=== PATIENT | female | born 1965 | race Caucasian/White ===

== ENCOUNTER 2021-10-28 11:21 | Emergency (ER) | payer BC ==
[2021-10-28 11:33] VITALS: RESP 20
--- NOTE | 2021-10-28 12:31 | XR ---
EXAMINATION TYPE: XR chest 2V DATE OF EXAM: 10/28/2021 COMPARISON: Prior chest CT August 12, 2015 HISTORY: Chest pain and body aches. TECHNIQUE: Frontal and lateral views of the chest are obtained. FINDINGS: Background Mild emphysematous change with persistent near 2.0 cm right midlung nodule. Ther e is no suspicious focal air space opacity, pleural effusion, or pneumothorax seen. The cardiac silh ouette size remains within normal limits. Multilevel spurring in the spine with scoliotic curvature i s redemonstrated. IMPRESSION: Chronic changes without acute pulmonary process.
--- NOTE | 2021-10-28 12:31 | ED ---
URI HPI - General Chief Complaint: Upper Respiratory Infection Stated Complaint: Covid test Time Seen by Provider: 10/28/21 11:22 Source: patient, RN notes reviewed Mode of arrival: ambulatory Limitations: no limitations - History of Present Illness Initial Comments: 56-year-old female presents emergency Department chief complaint of cough congestion 2 weeks. Patient states that she's had PCP today sent over for COVID-19 testing, x-ray. Patient does have a history of COPD, continues to smoke. Patient states she does not use her rescue inhaler. Patient denies any current chills subjective fever at home. No chest pain no abdominal pain no leg swelling denies any history DVT or PE. She states her cough is mildly productive. - Related Data Previous Rx's Medication Instructions Recorded Azithromycin [Zithromax Z-pack (6 0 mg PO DIRECTED #1 packet 10/28/21 tabs)] predniSONE 50 mg PO DAILY #5 tab 10/28/21 Allergies Allergy/AdvReac Type Severity Reaction Status Date / Time No Known Allergies Allergy Verified 10/28/21 11:33 Review of Systems ROS Statement: Those systems with pertinent positive or pertinent negative responses have been documented in the HPI. ROS Other: All systems not noted in ROS Statement are negative. Past Medical History Past Medical History: Diabetes Mellitus History of Any Multi-Drug Resistant Organisms: None Reported Past Surgical History: No Surgical Hx Reported Past Psychological History: No Psychological Hx Reported Smoking Status: Current every day smoker Past Alcohol Use History: None Reported Past Drug Use History: Marijuana General Exam Limitations: no limitations General appearance: alert, in no apparent distress Head exam: Present: atraumatic, normocephalic, normal inspection Eye exam: Present: normal appearance, PERRL, EOMI. Absent: scleral icterus, conjunctival injection, periorbital swelling ENT exam: Present: normal exam, normal oropharynx, mucous membranes moist Neck exam: Present: normal inspection, full ROM. Absent: tenderness, meningismus, lymphadenopathy Respiratory exam: Present: wheezes. Absent: normal lung sounds bilaterally, respiratory distress, rales, rhonchi, stridor Cardiovascular Exam: Present: regular rate, normal rhythm, normal heart sounds. Absent: systolic murmur, diastolic murmur, rubs, gallop, clicks Neurological exam: Present: alert, oriented X3 Skin exam: Present: warm, dry, intact, normal color. Absent: rash Course Vital Signs 10/28/21 11:31 Temperature 98.7 F Pulse Rate 96 Respiratory 20 Rate Blood Pressure 109/67 O2 Sat by Pulse 99 Oximetry Medical Decision Making - Medical Decision Making covid 19 is negative, x-rays unremarkable. Patient to for acute COPD exacerbation patient we discharged on steroids, antibiotics return parameters were discussed. - Lab Data Lab Results 10/28/21 Range/Units 12:10 Coronavirus (PCR) Not Detected (Not Detectd) Disposition Clinical Impression: COPD exacerbation Disposition: HOME SELF-CARE Condition: Stable Instructions (If sedation given, give patient instructions): COPD (Chronic Obstructive Pulmonary Disease) (ED) Additional Instructions: Please return to the Emergency Department if symptoms worsen or any other concerns. Prescriptions: predniSONE 50 mg PO DAILY #5 tab Azithromycin [Zithromax Z-pack (6 tabs)] 0 mg PO DIRECTED #1 packet Is patient prescribed a controlled substance at d/c from ED?: No Referrals: Kevin Scales DO [Primary Care Provider] - 1-2 days Time of Disposition: 12:59
[2021-10-28 13:12] VITALS: BP 110/64; PULSE 94; TEMP 99
== END 2021-10-28 13:12 | disposition home or self-care (01) ==
LOC: EC 11:21
DX: J44.1 Chronic obstructive pulmonary disease with (acute) exacerbation (principal); E11.9 Type 2 diabetes mellitus without complications; F17.200 Nicotine dependence, unspecified, uncomplicated; F12.90 Cannabis use, unspecified, uncomplicated; Z20.822 Contact with and (suspected) exposure to COVID-19
CPT/HCPCS: 71046; 87635; 99283

== ENCOUNTER → 2023-09-28 | Outpatient (CLI) | payer BC ==
--- NOTE | 2023-09-28 09:43 | XR ---
EXAMINATION TYPE: XR chest 2V DATE OF EXAM: 09/28/2023 COMPARISON: 10/28/2021 TECHNIQUE: PA and lateral views submitted. HISTORY: Hemoptysis FINDINGS: Right-sided consolidation and pleural effusion with hilar prominence. Underlying mass or adenopathy i n the differential. Right-sided chest tube. Left lung clear. Heart size normal. Degenerative change o f the spine. IMPRESSION: 1. Right-sided consolidation and pleural effusion. Cannot exclude underlying adenopathy or hilar mass .
== END | disposition home or self-care (01) ==
LOC: RADXRMAIN 09:17
PROVIDERS: ATTEND Family Medicine
DX: J90 Pleural effusion, not elsewhere classified (principal); R04.2 Hemoptysis
CPT/HCPCS: 71046

== ENCOUNTER 2023-10-26 09:37 | Inpatient (IN) | payer BC, OTHER ==
--- NOTE | 2023-10-26 10:00 | ED ---
SOB HPI - General Chief Complaint: Shortness of Breath Stated Complaint: Coughing blood Time Seen by Provider: 10/26/23 09:48 Source: patient, RN notes reviewed Mode of arrival: ambulatory Limitations: no limitations - History of Present Illness Initial Comments: This is a 58-year-old female who presents to the emergency department for hemoptysis. Patient has lung cancer and is being treated with immunotherapy every [address] Aceves. States that she had a biopsy last month and has had problems with hemoptysis since. She was told that the hemoptysis was not much of a concern at that time. She is worried because the hemoptysis got much worse last night and she is coughing up dark red blood. Not taking any blood thinners. She does have ongoing shortness of breath, but does not believe that it is much worse than normal. Denies any chest pain, fevers, or chills. MD Complaint: shortness of breath, cough - Related Data Home Medications Medication Instructions Recorded Confirmed Albuterol Inhaler [Ventolin Hfa 2 puff INHALATION RT-Q4H PRN 10/26/23 10/26/23 Inhaler] Atezolizumab [Tecentriq] 1,200 mg IV Q21D 10/26/23 10/26/23 Fluticasone Propion/Salmeterol 1 puff INHALATION RT-BID 10/26/23 10/26/23 [Advair 250-50 Diskus] Losartan Potassium 100 mg PO DAILY 10/26/23 10/26/23 Montelukast [Singulair] 10 mg PO HS 10/26/23 10/26/23 Pravastatin Sodium [Pravachol] 40 mg PO HS 10/26/23 10/26/23 metFORMIN HCL 1,000 mg PO BID 10/26/23 10/26/23 methocarbamoL [Robaxin] 500 mg PO TID PRN 10/26/23 10/26/23 oxyCODONE HCL [OxyIR] 5 mg PO Q4H PRN 10/26/23 10/26/23 Allergies Allergy/AdvReac Type Severity Reaction Status Date / Time No Known Allergies Allergy Verified 10/26/23 13:40 Review of Systems ROS Statement: Those systems with pertinent positive or pertinent negative responses have been documented in the HPI. ROS Other: All systems not noted in ROS Statement are negative. Past Medical History Past Medical History: Cancer, Diabetes Mellitus, Hypertension Additional Past Medical History / Comment(s): pt has hx of lung cancer History of Any Multi-Drug Resistant Organisms: None Reported Past Surgical History: No Surgical Hx Reported Past Psychological History: No Psychological Hx Reported Smoking Status: Current every day smoker Past Alcohol Use History: None Reported Past Drug Use History: Marijuana General Exam Limitations: no limitations General appearance: alert, in no apparent distress Head exam: Present: atraumatic, normocephalic, normal inspection Respiratory exam: Present: normal lung sounds bilaterally. Absent: respiratory distress, wheezes, rales, rhonchi, stridor Cardiovascular Exam: Present: regular rate, normal rhythm, normal heart sounds. Absent: systolic murmur, diastolic murmur, rubs, gallop, clicks Neurological exam: Present: alert, oriented X3, CN II-XII intact Psychiatric exam: Present: normal affect, normal mood Skin exam: Present: warm, dry, intact, normal color. Absent: rash Course Vital Signs 10/26/23 10/26/23 10/26/23 09:44 09:55 11:27 Temperature 97.3 F L Pulse Rate 100 91 92 Respiratory 18 18 16 Rate Blood Pressure 152/82 120/79 129/63 O2 Sat by Pulse 96 96 96 Oximetry Medical Decision Making - Medical Decision Making This is a 58 year old female who presents to the emergency department for hemoptysis and shortness of breath. Was pt. sent in by a medical professional or institution? @ -No Did you speak to anyone other than the patient for history? @ -No Did you review nursing and triage notes? @ -Yes, and I agree, it is accurate with regards to the patient's symptoms. Were old charts reviewed? @ -No Differential Diagnosis? @ -Differential Dyspnea: Coronary syndrome, arrhythmia, tamponade, asthma, COPD, pulmonary embolism, pneumonia, pneumothorax, pulmonary effusion, anaphylaxis, diabetic ketoacidosis, flailed chest, pulmonary contusion, diaphragmatic rupture, anemia, neuromuscul ar, this is not meant to be an all-inclusive list. EKG interpreted by me (3pts min.)? @ -EKG interpreted by me demonstrating the following: Sinus rhythm. Ventricular rate 94 bpm, FL interval 127 ms, QRS duration with 113 ms, QTc 398 ms. X-rays interpreted by me (1pt min.)? @ -Not obtained CT interpreted by me (1pt min.)? @ -CTA of the chest obtained. My interpretation identifies no evidence of a pulmonary embolus. U/S interpreted by me (1pt. min.)? @ -Not obtained What testing was considered but not performed? (CT, X-rays, U/S, labs)? Why? @ -None What meds were considered but not given? Why? @ -None Did you discuss the management of the patient with other professionals? @ -Yes, Dr. Cuello, who accepts the patient for admission. Did you reconcile home meds? @ -Yes Was smoking cessation discussed for >3mins.? @ -I discussed smoking cessation for greater than 3 minutes. The risk of smoking were discussed with the patient including but not limited to risks of cancer, stroke, coronary artery disease and COPD. Also discussed with patient were multiple methods of quitting smoking. Lastly we discussed the financial cost of smoking. Was critical care preformed (if so, how long)? @ -No Were there social determinants of health that impacted care today? How? (Homelessness, low income, unemployed, alcoholism, drug addiction, transportation, low edu. Level, literacy, decrease access to med. care, [place] [facility], rehab)? @ -No Was there de-escalation of care discussed even if they declined? (Discuss DNR or withdrawal of care, Hospice)? @ -No What co-morbidities impacted this encounter? (DM, HTN, Smoking, COPD, CAD, Cancer, CVA, Hep., AIDS, mental health diagnosis, sleep apnea, morbid obesity)? @ -Lung cancer, DM, HTN, smoking Was patient admitted / discharged? @ -Admitted. Lab work demonstrates a hemoglobin of 8.7. D-dimer elevated at 3.76. Patient had a print out with her of lab work obtained earlier this month demonstrating a hemoglobin of greater than 10. CTA of the chest demonstrates multiple right-sided lung masses suspicious for primary and/or metastatic disease. There is also a consolidation or metastasis at the right lung base. Given the patient's worsening symptoms with anemia, patient admitted to medicine for further management and serial hemoglobins. Due to the possibility of a consolidation at the right lung base, she was started on the pneumonia protocol with ceftriaxone and azithromycin. Blood cultures obtained as well. Consult placed for pulmonology and hematology/oncology. Undiagnosed new problem with uncertain prognosis? @ -None Drug Therapy requiring intensive monitoring for toxicity (Heparin, Nitro, Insulin, Cardizem)? @ -None Were any procedures done? @ -None Diagnosis/symptom? @ -Hemoptysis Acute, or Chronic, or Acute on Chronic? @ -Acute Uncomplicated (without systemic symptoms) or Complicated (systemic symptoms)? @ -Uncomplicated Side effects of treatment? @ -None Exacerbation, Progression, or Severe Exacerbation] @ -Not applicable Poses a threat to life or bodily function? @ -Yes, this can lead to further blood loss This case was discussed in detail with the attending ED physician, Dr. Tanner. Presentation, findings, and treatment plan discussed in detail as well. - Lab Data Result diagrams: 10/26/23 10:11 10/26/23 10:11 Lab Results 10/26/23 10/26/23 10/26/23 Range/Units 10:11 10:11 10:11 WBC 8.8 (3.8-10.6) k/uL RBC 3.23 L (3.80-5.40) m/uL Hgb 8.7 L (11.4-16.0) gm/dL Hct 28.7 L (34.0-46.0) % MCV 89.1 (80.0-100.0) fL MCH 27.1 (25.0-35.0) pg MCHC 30.4 L (31.0-37.0) g/dL RDW 14.0 (11.5-15.5) % Plt Count 641 H (150-450) k/uL MPV 7.9 Neutrophils % 79 % Lymphocytes % 12 % Monocytes % 4 % Eosinophils % 3 % Basophils % 0 % Neutrophils # 7.0 (1.3-7.7) k/uL Lymphocytes # 1.1 (1.0-4.8) k/uL Monocytes # 0.4 (0-1.0) k/uL Eosinophils # 0.3 (0-0.7) k/uL Basophils # 0.0 (0-0.2) k/uL Hypochromasia Moderate PT 10.2 (10.0-12.5) sec INR 0.9 (<1.2) APTT 24.9 (22.0-30.0) sec D-Dimer 3.76 H (<0.60) mg/L FEU Sodium 137 (137-145) mmol/L Potassium 4.1 (3.5-5.1) mmol/L Chloride 109 H (98-107) mmol/L Carbon Dioxide 21 L (22-30) mmol/L Anion Gap 7 mmol/L BUN 8 (7-17) mg/dL Creatinine 0.38 L (0.52-1.04) mg/dL Est GFR (CKD-EPI)AfAm >90 (>60 ml/min/1.73 sqM) Est GFR (CKD-EPI)NonAf >90 (>60 ml/min/1.73 sqM) Glucose 144 H (74-99) mg/dL Plasma Lactic Acid Arnaldo (0.7-2.0) mmol/L Calcium 9.0 (8.4-10.2) mg/dL Magnesium 1.9 (1.6-2.3) mg/dL Total Bilirubin 0.5 (0.2-1.3) mg/dL AST 18 (14-36) U/L ALT 13 (4-34) U/L Alkaline Phosphatase 85 (38-126) U/L Troponin I (0.000-0.034) ng/mL Total Protein 7.1 (6.3-8.2) g/dL Albumin 3.9 (3.5-5.0) g/dL Influenza Type A (PCR) (Not Detectd) Influenza Type B (PCR) (Not Detectd) RSV (PCR) (Not Detectd) SARS-CoV-2 (PCR) (Not Detectd) 10/26/23 10/26/23 10/26/23 Range/Units 10:11 10:11 10:11 WBC (3.8-10.6) k/uL RBC (3.80-5.40) m/uL Hgb (11.4-16.0) gm/dL Hct (34.0-46.0) % MCV (80.0-100.0) fL MCH (25.0-35.0) pg MCHC (31.0-37.0) g/dL RDW (11.5-15.5) % Plt Count (150-450) k/uL MPV Neutrophils % % Lymphocytes % % Monocytes % % Eosinophils % % Basophils % % Neutrophils # (1.3-7.7) k/uL Lymphocytes # (1.0-4.8) k/uL Monocytes # (0-1.0) k/uL Eosinophils # (0-0.7) k/uL Basophils # (0-0.2) k/uL Hypochromasia PT (10.0-12.5) sec INR (<1.2) APTT (22.0-30.0) sec D-Dimer (<0.60) mg/L FEU Sodium (137-145) mmol/L Potassium (3.5-5.1) mmol/L Chloride (98-107) mmol/L Carbon Dioxide (22-30) mmol/L Anion Gap mmol/L BUN (7-17) mg/dL Creatinine (0.52-1.04) mg/dL Est GFR (CKD-EPI)AfAm (>60 ml/min/1.73 sqM) Est GFR (CKD-EPI)NonAf (>60 ml/min/1.73 sqM) Glucose (74-99) mg/dL Plasma Lactic Acid Arnaldo 1.4 (0.7-2.0) mmol/L Calcium (8.4-10.2) mg/dL Magnesium (1.6-2.3) mg/dL Total Bilirubin (0.2-1.3) mg/dL AST (14-36) U/L ALT (4-34) U/L Alkaline Phosphatase (38-126) U/L Troponin I <0.012 (0.000-0.034) ng/mL Total Protein (6.3-8.2) g/dL Albumin (3.5-5.0) g/dL Influenza Type A (PCR) Not Detected (Not Detectd) Influenza Type B (PCR) Not Detected (Not Detectd) RSV (PCR) Not Detected (Not Detectd) SARS-CoV-2 (PCR) Not Detected (Not Detectd) - Radiology Data Radiology results: report reviewed, image reviewed Disposition Clinical Impression: Nicotine dependence, Hemoptysis Disposition: ADMITTED IP TO THIS [facility] Referrals: Kevin Scales DO [Primary Care Provider] - 1-2 days
[2023-10-26 10:36] LABS: Basophils % (A) 0 %; Eosinophils # (A) 0.3 k/uL (0-0.7); Eosinophils % (A) 3 %; HCT 28.7 % (34.0-46.0); HGB 8.7 gm/dL (11.4-16.0); Hypochromasia Moderate; Lymphocytes # (A) 1.1 k/uL (1.0-4.8); Lymphocytes % (A) 12 %; MCH 27.1 pg (25.0-35.0); MCHC 30.4 g/dL (31.0-37.0); MCV 89.1 fL (80.0-100.0); Mean Platelet Volume 7.9; Monocytes # (A) 0.4 k/uL (0-1.0); Monocytes % (A) 4 %; Neutrophils % (A) 79 %; Platelet Count 641 k/uL (150-450); RBC 3.23 m/uL (3.80-5.40); WBC 8.8 k/uL (3.8-10.6)
[2023-10-26 10:51] LABS: INR 0.9 (<1.2); Partial Thromboplastin Time 24.9 sec (22.0-30.0); Prothrombin Time 10.2 sec (10.0-12.5)
[2023-10-26 11:23] LABS: ALT 13 U/L (4-34); AST 18 U/L (14-36); African American GFR (CKD) >90 (>60 ml/min/1.73 sqM); Albumin 3.9 g/dL (3.5-5.0); Alkaline Phosphatase 85 U/L (38-126); Anion Gap 7 mmol/L; Blood Urea Nitrogen 8 mg/dL (7-17); Carbon Dioxide 21 mmol/L (22-30); Chloride 109 mmol/L (98-107); Glucose 144 mg/dL (74-99); Magnesium 1.9 mg/dL (1.6-2.3); Non-African American GFR(CKD) >90 (>60 ml/min/1.73 sqM); Potassium 4.1 mmol/L (3.5-5.1); Sodium 137 mmol/L (137-145); Total Bilirubin 0.5 mg/dL (0.2-1.3); Total Protein 7.1 g/dL (6.3-8.2)
--- NOTE | 2023-10-26 12:52 | CT ---
CTA CHEST EXAMINATION TYPE: CT chest angio for PE DATE OF EXAM: 10/26/2023 INDICATION: Hemoptysis, lung cancer patient CT DLP: 271.5 mGycm, Automated exposure control for dose reduction was used. CONTRAST: Patient injected with 60ml mL of Isovue 370. COMPARISON: 08/12/2015 TECHNIQUE: CT of the chest is performed on a spiral scan at 2 mm thick sections. Study is performed with intravenous contrast timed for evaluation for pulmonary embolism. This will limit additional po rtions of the evaluation. 3-D MIP images reconstructed by the technologist are reviewed on the compu ter in the coronal and sagittal planes. FINDINGS: No persistent filling defects are evident to suggest an acute pulmonary embolism. No mediastinal or hilar adenopathy enlarged by CT criteria is evident. The ascending aorta diameter at the level of the main pulmonary artery is 3.3 cm. The main pulmonary artery diameter at the bifurcation is 2.4 cm. Small pericardial effusion is present Emphysematous changes are evident within the bilateral lung wagoner. There is a pleural-based 1.4 cm density along the anterolateral right upper lung field. Series 406 im age 39. Posterior lateral pleural-based density is present measuring 1.1 cm, series 406 image 41. There is a spiculated density within the right midlung measuring 3.3 x 3.2 cm (series 406 image 60. L venancio nodules include a mediastinal border mass measuring 3.1 cm 1.1 cm nodule lateral right midlung. S eries there appear to be 2 adjacent pleural-based densities along the mediastinal border measuring to magdi of 3.7 x 2.2 cm. Series 401 image 45. This is better visualized on the mediastinal windows. Serie s 406 image 63 There is a 1.4 cm nodular density anterior to the ascending thoracic aorta, series 401 image 70 minim al pericardial effusion is present. There is groundglass opacity through the right lower lobe. Underlying masses and loculated effusion m ay be present at the base. Limited CT sections were through the upper abdomen. Upper abdomen appears unremarkable. IMPRESSION: 1. Multiple right-sided lung masses suspicious for primary and/or metastatic disease. 2. There is a 1.4 cm anterior mediastinal lymph node. 3. Consolidation or metastasis at the right lung base
[2023-10-26] MEDS ORDERED: PNEUMONIA PROTOCOL UTILIZED 1 EACH MISC PO PRN (13:26)
[2023-10-26] MEDS ORDERED: ALBUTEROL NEBULIZED 2.5 MG/3 ML INHALATION PRN (14:05)
[2023-10-26] MEDS ORDERED: ATEZOLIZUMAB IV SCH (14:15)
[2023-10-26] MEDS: AZITHROMYCIN 500 MG in SODIUM CHLORIDE 0.9% 250 ML IVPB STA (16:02)
[2023-10-26] MEDS: metFORMIN 500 MG TAB PO SCH (16:43)
--- NOTE | 2023-10-26 17:26 | P.CNPUL ---
History of Present Illness Consult date: 10/26/23 Requesting physician: Aki Cuello Reason for consult: other (Hemoptysis) Chief complaint: Hemoptysis History of present illness: This is a pleasant 58-year-old female patient with a known history of chronic obstructive pulmonary disease, chronic and ongoing tobacco dependence, diabetes mellitus, hyperlipidemia and a recent diagnosis of small cell lung cancer in July 2023. She had presented to [facility] with shortness of breath at that time and was found to have a right-sided pleural effusion and undergone thoracentesis. She was discharged after 2 days and return there again with worsening shortness of breath. She had reaccumulated the fluid in a short amount of time. From there she was transferred to [facility] where a Pleurx catheter was placed for approximately 4 weeks and it was removed about 3 weeks ago. She did follow-up with Dr. Aceves and has since received 1 round of immunotherapy in the form of Tecentriq. She was actually due for a second dose today but ended up here as she developed increasing hemoptysis over the past 24 hours. She feels it has been about 8 ounces. No fever or chills. No significant phlegm production. Mainly bright red blood. CT scan of the chest did rule out pulmonary emboli but revealed multiple right-sided lung masses suspicious for primary versus metastatic disease. There is a 1.4 cm anterior mediastinal lymph node. Consolidation or metastasis of the right lung base. She is seen today in consultation in the emergency department. She is currently sitting up in a chair. Awake and alert in no acute distress. Maintaining good O2 saturations in the upper 90s on room air. Denies any shortness of breath at rest. Some dyspnea on exertion at times. She is afebrile. Hemodynamically stable. White count 8.8. Hemoglobin 8.7. Platelets 641. D-dimer 3.76. Sodium 137. Potassium 4.1. Bicarb 21. BUN 8. Creatinine 0.38. Viral screen is negative Review of Systems REVIEW OF SYSTEMS: CONSTITUTIONAL: Positive for significant weight loss. EYES: Denies change in vision. EARS, NOSE, MOUTH, THROAT: Denies headaches, denies sore throat. CARDIOVASCULAR: Denies chest pain, palpitations or syncopal episodes. RESPIRATORY: Positive for hemoptysis. Positive for dyspnea on exertion. GASTROINTESTINAL: Denies change in appetite, denies abdominal pain GENITOURINARY: Denies hematuria, denies infections. MUSKULOSKELETAL: Denies pain, denies swelling. INTEGUMENTARY: Denies rash, denies eczema. NEUROLOGICAL: Denies recent memory loss, no recent seizure activity. PSYCHIATRIC: Denies anxiety, denies depression. HEMATOLOGIC/LYMPHATIC: Denies anemia, denies enlarged lymph nodes. Past Medical History Past Medical History: Cancer, Diabetes Mellitus, Hypertension Additional Past Medical History / Comment(s): pt has hx of lung cancer History of Any Multi-Drug Resistant Organisms: None Reported Past Surgical History: No Surgical Hx Reported Past Psychological History: No Psychological Hx Reported Smoking Status: Current every day smoker Past Alcohol Use History: None Reported Past Drug Use History: Marijuana Medications and Allergies Home Medications Medication Instructions Recorded Confirmed Type Albuterol Inhaler [Ventolin Hfa 2 puff INHALATION RT-Q4H PRN 10/26/23 10/26/23 History Inhaler] Atezolizumab [Tecentriq] 1,200 mg IV Q21D 10/26/23 10/26/23 History Fluticasone Propion/Salmeterol 1 puff INHALATION RT-BID 10/26/23 10/26/23 History [Advair 250-50 Diskus] Losartan Potassium 100 mg PO DAILY 10/26/23 10/26/23 History Montelukast [Singulair] 10 mg PO HS 10/26/23 10/26/23 History Pravastatin Sodium [Pravachol] 40 mg PO HS 10/26/23 10/26/23 History metFORMIN HCL 1,000 mg PO BID 10/26/23 10/26/23 History methocarbamoL [Robaxin] 500 mg PO TID PRN 10/26/23 10/26/23 History oxyCODONE HCL [OxyIR] 5 mg PO Q4H PRN 10/26/23 10/26/23 History Allergies Allergy/AdvReac Type Severity Reaction Status Date / Time No Known Allergies Allergy Verified 10/26/23 13:40 Physical Exam Vitals: Vital Signs Temp Pulse Resp BP Pulse Ox 10/26/23 15:17 96 18 117/69 97 10/26/23 15:04 95 20 118/56 97 10/26/23 11:27 92 16 129/63 96 10/26/23 09:55 91 18 120/79 96 10/26/23 09:44 97.3 F L 100 18 152/82 96 Intake and Output 10/26/23 10/26/23 10/26/23 06:59 14:59 22:59 Other: Weight 63.049 kg GENERAL EXAM: Alert, very pleasant 58-year-old female, on room air, comfortable in no apparent distress. HEAD: Normocephalic. EYES: Normal reaction of pupils, equal size. NOSE: Clear with pink turbinates. THROAT: No erythema or exudates. NECK: No masses, no JVD. CHEST: No chest wall deformity. LUNGS: Equal air entry scattered rhonchi over the right lung, dullness in the bases. CVS: S1 and S2 normal with no audible murmur, regular rhythm. ABDOMEN: No hepatosplenomegaly, normal bowel sounds, no guarding or rigidity. SPINE: No scoliosis or deformity SKIN: No rashes CENTRAL NERVOUS SYSTEM: No focal deficits, tone is normal in all 4 extremities. EXTREMITIES: There is no peripheral edema. No clubbing, no cyanosis. Peripheral pulses are intact. Results - Laboratory Findings CBC and BMP: 10/26/23 10:11 10/26/23 10:11 PT/INR, D-dimer PT 10.2 sec (10.0-12.5) 10/26/23 10:11 INR 0.9 (<1.2) 10/26/23 10:11 D-Dimer 3.76 mg/L FEU (<0.60) H 10/26/23 10:11 Abnormal lab findings: Abnormal Labs 10/26/23 10/26/23 10/26/23 10:11 10:11 10:11 RBC 3.23 L Hgb 8.7 L Hct 28.7 L MCHC 30.4 L Plt Count 641 H D-Dimer 3.76 H Chloride 109 H Carbon Dioxide 21 L Creatinine 0.38 L Glucose 144 H - Diagnostic Findings CT scan - chest: image reviewed Assessment and Plan Assessment: Hemoptysis in a patient with a known history of small cell lung cancer diagnosed in July 2023 at [facility]. Received 1 round of immunotherapy in the form of Tecentriq. Due for her second round today Dyspnea on exertion secondary to multiple right-sided lung masses. Consolidation or metastasis in the right lung base. There is a 1.4 cm anterior mediastinal lymph node Chronic and ongoing tobacco dependence Chronic obstructive pulmonary disease Diabetes mellitus Hypertension Hyperlipidemia Plan: The patient was seen and evaluated CT angiogram, labs and medications reviewed Continue to monitor hemoglobin Will plan for bronchoscopy tomorrow to evaluate where the blood is coming from Patient was explained she could be transferred to [facility] to have a workup there but is willing to stay here for evaluation If any significant hemoptysis overnight we will plan to transfer to tertiary care otherwise we will plan for bronchoscopy tomorrow She may require bronchial artery embolization if hemoptysis continues The patient verbalizes understanding and is agreeable to the plan Continue bronchodilators, antibiotics for now We will continue to follow and make further recommendations based on her clinical status I have personally seen and examined the patient, performed the documentation and the assessment and plan as written. Number of minutes spent on the visit: 20.
[2023-10-26] MEDS: methocarbamoL 500 MG TAB PO PRN (18:53)
[2023-10-26] MEDS: ACETAMINOPHEN TAB 500 MG TAB PO PRN (20:05)
[2023-10-26] MEDS: SYMBICORT 80-4.5 MCG INHALER INHALATION SCH (20:14)
[2023-10-26] MEDS: MONTELUKAST 10 MG TAB PO SCH (21:16)
[2023-10-26] MEDS: PRAVASTATIN SODIUM 40 MG TAB PO SCH (21:17)
[2023-10-27 08:54] LABS: HCT 27.2 % (34.0-46.0); HGB 8.1 gm/dL (11.4-16.0); Hypochromasia Moderate; MCH 26.8 pg (25.0-35.0); MCHC 29.7 g/dL (31.0-37.0); MCV 90.1 fL (80.0-100.0); Mean Platelet Volume 6.9; Platelet Count 588 k/uL (150-450); RBC 3.02 m/uL (3.80-5.40); RDW 14.2 % (11.5-15.5); WBC 7.5 k/uL (3.8-10.6)
[2023-10-27] MEDS: LOSARTAN 50 MG TAB PO SCH (09:24)
[2023-10-27] MEDS ORDERED: ALPRAZolam 0.25 MG TAB PO PRN (12:13)
[2023-10-27] MEDS ORDERED: DEXTROSE 50% SYRINGE 50 ML IVP PRN ×2 (12:13)
[2023-10-27] MEDS: INSULIN ASPART (NovoLOG) 100 UNIT/ML VIAL SQ SCH (12:24)
[2023-10-27] MEDS ORDERED: IPRATROPIUM-ALBUTEROL 3 ML NEB INHALATION PRN (12:26)
[2023-10-27] MEDS: PIPERACILLIN-TAZOBACTAM 3.375 GM in SODIUM CHLORIDE 0.9% 100 ML IVPB SCH (12:31)
[2023-10-27] MEDS: NICOTINE 14MG/24HR PATCH TRANSDERM SCH (12:38)
--- NOTE | 2023-10-27 12:44 | HP ---
HISTORY AND PHYSICAL CHIEF COMPLAINT: Hemoptysis. HISTORY OF PRESENT ILLNESS: This is a 58-year-old woman with a past medical history of multiple medical problems including lung cancer, being followed by Dr. Kevin Scales and as well as Dr. Aceves in the outpatient setting, was admitted. The patient has been on immunotherapy for the last 3 weeks. The patient has also had a biopsy last month and the patient had hemoptysis subsequently and the patient came to [facility] and admitted for further evaluation and treatment. Dark blood is being coughed up. D-dimer was elevated; however, CT angio chest showed no evidence of pulmonary embolism, but right- sided lung mass with metastatic disease and postobstructive pneumonia in the right lung base was also suspected. The patient was admitted for further evaluation and treatment. There is no history of any fever, rigors, or chills. Dr. Hadley is planning a bronchoscopy. PAST MEDICAL HISTORY: Reviewed include diabetes mellitus, hypertension, history of lung cancer. Rest of the history and rest of the chart is also reviewed. HOME MEDICATIONS: Reviewed include Tecentriq and dose and rest of medications noted. ALLERGIES: None. FAMILY HISTORY: No history of heart disease or strokes in the family. SOCIAL HISTORY: Smoking, THC. REVIEW OF SYSTEMS: A 14-point review is negative except as mentioned earlier. PHYSICAL EXAMINATION: VITAL SIGNS: Pulse 86, blood pressure 115/60, respirations 16. HEENT: Conjunctivae normal. NECK: No JVD. CARDIOVASCULAR: S1, S2. RESPIRATIONS: Breath sounds diminished at the bases. A few scattered rhonchi and crackles. ABDOMEN: Soft and nontender. LEGS: No edema. NERVOUS SYSTEM: Nonfocal. SKIN: No ulcer, rash, bleeding. JOINTS: No active deforming arthropathy. LABORATORY DATA: Hemoglobin 8.1. Rest of the labs are noted. ASSESSMENT: 1. Acute hemoptysis with mild acute blood loss anemia. 2. Right lung cancer, on immunotherapy. 3. Possibly right-sided postobstructive pneumonia. 4. Hemoptysis. 5. Diabetes mellitus, type 2. 6. Hypertension. 7. History of nicotine dependence. RECOMMENDATIONS AND DISCUSSION: This is a 58-year-old woman, who presented with multiple complex medical issues, we will monitor the patient closely. I recommend to continue current management and continue symptomatic treatment. Continue with monitoring hemoglobin closely, bronchoscopy. Otherwise, follow closely with Dr. Hadley and Dr. Aceves. Broad-spectrum IV antibiotics empirically for postobstructive pneumonia. Rest of the home medications. Avoid blood thinners. Prognosis guarded because of multiple complex medical issues. Further recommendations to follow. See orders for further details. Smoking cessation. Symptomatic treatment. MMODL / IJN: [id number] /
[2023-10-27] MEDS ORDERED: LIDOCAINE 1% INJ 10MG/ML (20 ML MDV) ONE (14:09)
[2023-10-27] MEDS ORDERED: PROPOFOL 10 MG/ML 20 ML VIAL IV ONE (14:09)
[2023-10-27] MEDS: LACTATED RINGERS 1,000 ML IV ONE (14:11)
--- NOTE | 2023-10-27 15:34 | P.PN ---
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 She had presented to [facility] with shortness of breath at that time and was found to have a right-sided pleural effusion and undergone thoracentesis. She was discharged after 2 days and return there again with worsening shortness of breath. She had reaccumulated the fluid in a short amount of time. From there she was transferred to [facility] where a Pleurx catheter was placed for approximately 4 weeks and it was removed about 3 weeks ago. She did follow-up with Dr. Aceves and has since received 1 round of immunotherapy in the form of Tecentriq. She was actually due for a second dose today but ended up here as she developed increasing hemoptysis over the past 24 hours. She feels it has been about 8 ounces. No fever or chills. No significant phlegm production. Mainly bright red blood. CT scan of the chest did rule out pulmonary emboli but revealed multiple right-sided lung masses suspicious for primary versus metastatic disease. There is a 1.4 cm anterior mediastinal lymph node. Consolidation or metastasis of the right lung base. She is seen today in consultation in the emergency department. She is currently sitting up in a chair. Awake and alert in no acute distress. Maintaining good O2 saturations in the upper 90s on room air. Denies any shortness of breath at rest. Some dyspnea on exertion at times. She is afebrile. Hemodynamically stable. White count 8.8. Hemoglobin 8.7. Platelets 641. D-dimer 3.76. Sodium 137. Potassium 4.1. Bicarb 21. BUN 8. Creatinine 0.38. Viral screen is negative. The patient is seen today October 27, 2023 in follow-up in the emergency department. She is sitting up in the stretcher. Awake and alert in no acute distress. She denies any worsening shortness of breath, cough or congestion. Her hemoptysis has slowed down. Just some dark blood noted. She did undergo bronchoscopy with BAL today. No active bleeding was noted. No purulent drainage noted. Her bronchial airways were lavaged and again no active bleeding was noted just old blood removed. Cultures and cytology pending. Her hemoglobin is 8.1. White count 7.5. Platelets 588. Legionella screen negative. Continued on DuoNeb inhalations, Symbicort, antibiotics in the form of Zosyn and azithromycin. Her procalcitonin however is negative. NicoDerm patch in place. Objective - Vital Signs Vital signs: Vital Signs Temp 98.1 F 10/27/23 13:47 Pulse 78 10/27/23 13:47 Resp 18 10/27/23 13:47 BP 115/66 10/27/23 13:47 Pulse Ox 96 10/27/23 13:47 FiO2 Intake & Output 10/26/23 10/27/23 10/27/23 18:59 06:59 18:59 Intake Total 200 Balance 200 Weight 63.049 kg 63.049 kg Intake: IV 200 - Exam GENERAL EXAM: Alert,pleasant 58-year-old female, on room air, in no apparent distress. HEAD: Normocephalic. EYES: Normal reaction of pupils, equal size. NOSE: Clear with pink turbinates. THROAT: No erythema or exudates. NECK: No masses, no JVD. CHEST: No chest wall deformity. LUNGS: Equal air entry scattered rhonchi over the right lung, dullness in the bases. CVS: S1 and S2 normal with no audible murmur, regular rhythm. ABDOMEN: No hepatosplenomegaly, normal bowel sounds, no guarding or rigidity. SPINE: No scoliosis or deformity SKIN: No rashes CENTRAL NERVOUS SYSTEM: No focal deficits, tone is normal in all 4 extremities. EXTREMITIES: There is no peripheral edema. No clubbing, no cyanosis. Peripheral pulses are intact. - Labs CBC & Chem 7: 10/27/23 07:48 10/26/23 10:11 Labs: Abnormal Lab Results - Last 24 Hours (Table) 10/27/23 Range/Units 07:48 RBC 3.02 L (3.80-5.40) m/uL Hgb 8.1 L (11.4-16.0) gm/dL Hct 27.2 L (34.0-46.0) % MCHC 29.7 L (31.0-37.0) g/dL Plt Count 588 H (150-450) k/uL Assessment and Plan Assessment: Hemoptysis in a patient with a known history of small cell lung cancer diagnosed in July 2023 at [facility]. Received 1 round of immunotherapy in the form of Tecentriq. Was due for her second round 10/26/23. She did undergo bronchoscopy with BAL today October 27, 2023. Bronchial airways were lavaged, observed over several minutes and no active bleeding noted. Cultures and cytology pending. Anemia suspect secondary to above in combination with treatment Dyspnea on exertion secondary to multiple right-sided lung masses. Consolidation or metastasis in the right lung base. There is a 1.4 cm anterior mediastinal lymph node. Procalcitonin 0.06 Chronic and ongoing tobacco dependence Chronic obstructive pulmonary disease Diabetes mellitus Hypertension Hyperlipidemia Plan: The patient was seen and evaluated Labs and medications reviewed Continue to monitor hemoglobin Bronchoscopy performed today with no active bleeding noted Continue bronchodilators, antibiotics Probable discharge in the a.m. We will continue to follow I have personally seen and examined the patient, performed the documentation and the assessment and plan as written. Number of minutes spent on the visit: 10.
[2023-10-27] MEDS: IPRATROPIUM-ALBUTEROL 3 ML NEB INHALATION SCH (15:56)
[2023-10-27] MEDS: AZITHROMYCIN 500 MG TAB PO SCH (16:07)
[2023-10-27 17:17] LABS: Glucose,Whole Blood 192 mg/dL (70-110)
[2023-10-27 20:14] LABS: Glucose,Whole Blood 142 mg/dL (70-110)
[2023-10-27 20:26] VITALS: RESP 16
--- NOTE | 2023-10-27 20:52 | OP ---
OPERATIVE REPORT DATE OF SERVICE : PROCEDURES PERFORMED: Bronchoscopy, bronchoalveolar lavage, and washing of the right lower lobe. PREOPERATIVE DIAGNOSIS: Small cell lung cancer with hemoptysis. POSTOPERATIVE DIAGNOSIS: Small cell lung cancer, but no active bleeding noted during bronchoscopy. ANESTHESIA USED: IV conscious sedation. DESCRIPTION OF PROCEDURE: The patient was prepared according to the bronchoscopy protocol. She was brought in to the bronchoscopy suite, placed in a supine position, O2 was applied via Ventimask. We monitored her O2 saturation continuously. Blood pressure was intermittently monitored and cardiac rhythm was continuously monitored. A bite block was applied, and Ventimask was applied. After adequate sedation, the bronchoscope was advanced through the bite block down to the area of the vocal cords. There was evidence of old blood noted around the vocal cords, and the blood was easily suctioned. Then lidocaine was applied over the vocal cords, and the bronchoscope was advanced further down. The tracheal wall was noted to have blood, old blood noted on the tracheal wall, and this was also suctioned easily and removed. Further down, took a thorough evaluation of the kirstie, right upper lobe, right middle lobe, right lower lobe, left upper lobe, lingula, and left lower lobe. There was evidence of old bleeding, and mucosa in both lungs was noted to have old blood on the surface of the mucosa. All the old blood was all washed and cleaned easily and suctioned. Then, a thorough examination was done of the right upper lobe, there was some extrinsic compression noted on the anterior segment of the right upper lobe, but no gross endobronchial tumor noted in the right upper lobe anterior segment. The same thing was noted in the right middle lobe, there was extrinsic compression and right middle lobe was noted to be almost completely closed, however, I was able to get the tip of the bronchoscope into the right middle lobe and visualize the medial segment and the lateral segment. There was no evidence of bleeding coming in the right middle lobe, but clearly the right middle lobe seems to be collapse, most likely extrinsically compressed. Further down, the right lower lobe was examined, there was no evidence of any endobronchial tumors in the right lower lobe, the different segments were evaluated, and washing of the right lower lobe was done, waited and evaluated the right lower lobe and right middle lobe for like 5 minutes and there was no evidence of any active bleeding noted anywhere. Washing from the right lower lobe was sent for different diagnostic studies. Procedure was well tolerated, again there was no evidence of any endobronchial tumors except for extrinsic compression of the right middle lobe and the anterior segment of the right upper lobe. The procedure tolerated, no complications. Discussed findings with the daughter at bedside. MMODL / IJN: [id number] /
--- NOTE | 2023-10-28 00:50 | P.CONS ---
History of Present Illness - Reason for Consult Consult date: 10/27/23 hemoptysis, lung cancer Requesting physician: Mary Alfred - Chief Complaint hemoptysis - History of Present Illness Ms Blanton is a pleasant 58 yr old female, who had initially presented to [facility] on 08/16/23, complaining of progressive shortness of breath, that had been most marked over the past week. She felt that her symptoms started about 2 weeks. There was also intermittent cough, occasionally productive, but shortness of breath was the more prominent symptom. Initial chest x-ray showed almost complete opacification of the right hemithorax. CT scan confirmed the same, due to pleural effusion. There was also pleural thickening measuring about 1 cm in the right lower lobe. there was a filling defect in the right lower lobe bronchus with endobronchial lesion, versus mucous plug both in the differential. The patient had thoracentesis on 08/16/23, with improvement in her symptoms. She had about 1600 cc of fluid drained. The pathology subsequently came back positive for metastatic adenocarcinoma, consistent with lung primary. The patient was readmitted on 08/22/23 with recurrent shortness of breath due to reaccumulation of fluid. She was transferred to [facility], and had a Pleurx catheter placed. She had MRI of the brain during that admission that was negative for metastasis. She also had molecule her testing done, that showed her to be PD1 positive at 80%. NGS was negative for other actionable mutations. 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 She was advised that she has stage IV malignancy, which would not be considered curable. The patient's disease burden is localized to the right hemithorax, She has high PD1 positivity. Therefore it would be reasonable to treat her with single agent immunotherpay as a first line agent. She completed cycle 1 of tecentriq on 10/05/23, and missed cycle 2 on 10/25 due to hospitalization Patient presented to the emergency room with complaints of hemoptysis. She reports symptoms started approximately 5 days ago which were mild initially but began to worsen over the last 2 days. She denies any large blood clots and denies having any hemoptysis greater than 1 teaspoon. Reports no significant changes in breathing status. Denies fever and chills. On admission D-dimer was elevated at 3.76. CTA was obtained showing multiple right sided lung masses. 1.4 cm anterior mediastinal lymph node. Consolidation or metastasis at the right lung base. Negative for acute pulmonary embolism. Viral panel negative. Coags WNL. Troponin negative. CBC showed WBC 7.5, hemoglobin 8.1, platelets 588,000. Creatinine 0.38, GFR greater than 90. At today's visit patient is reporting improvement in symptoms. No hemoptysis noted today. Patient is on no blood thinners. She does reporting taking 4 doses of Motrin prior to the onset of hemoptysis due to pain around previous Pleurx site. Review of Systems 10 point ROS is negative except as stated in the HPI Past Medical History Past Medical History: Cancer, Diabetes Mellitus, Hypertension Additional Past Medical History / Comment(s): pt has hx of lung cancer History of Any Multi-Drug Resistant Organisms: None Reported Past Surgical History: No Surgical Hx Reported Past Psychological History: No Psychological Hx Reported Smoking Status: Current every day smoker Past Alcohol Use History: None Reported Past Drug Use History: Marijuana Medications and Allergies Home Medications Medication Instructions Recorded Confirmed Type Albuterol Inhaler [Ventolin Hfa 2 puff INHALATION RT-Q4H PRN 10/26/23 10/26/23 History Inhaler] Atezolizumab [Tecentriq] 1,200 mg IV Q21D 10/26/23 10/26/23 History Fluticasone Propion/Salmeterol 1 puff INHALATION RT-BID 10/26/23 10/26/23 Histo ry [Advair 250-50 Diskus] Losartan Potassium 100 mg PO DAILY 10/26/23 10/26/23 History Montelukast [Singulair] 10 mg PO HS 10/26/23 10/26/23 History Pravastatin Sodium [Pravachol] 40 mg PO HS 10/26/23 10/26/23 History metFORMIN HCL 1,000 mg PO BID 10/26/23 10/26/23 History methocarbamoL [Robaxin] 500 mg PO TID PRN 10/26/23 10/26/23 History oxyCODONE HCL [OxyIR] 5 mg PO Q4H PRN 10/26/23 10/26/23 History Allergies Allergy/AdvReac Type Severity Reaction Status Date / Time No Known Allergies Allergy Verified 10/26/23 13:40 Physical Exam Vitals: Vital Signs Temp Pulse Resp BP Pulse Ox 10/27/23 11:56 98.2 F 83 18 128/60 96 10/27/23 09:25 86 16 115/62 93 L 10/27/23 03:49 58 L 16 110/60 100 10/27/23 02:34 86 18 118/54 92 L 10/26/23 21:18 88 18 93/37 94 L 10/26/23 18:54 92 18 134/77 96 10/26/23 15:17 96 18 117/69 97 10/26/23 15:04 95 20 118/56 97 - Constitutional General appearance: no acute distress - Respiratory Respiratory: right: diminished, left: CTA - Cardiovascular Rhythm: regular Heart sounds: normal: S1, S2 - Gastrointestinal General gastrointestinal: soft, no tenderness - Integumentary Integumentary: no cyanotic - Neurologic Neurologic: CNII-XII intact - Musculoskeletal Musculoskeletal: strength equal bilaterally - Psychiatric Psychiatric: A&O x's 3 Results CBC & Chem 7: 10/27/23 07:48 10/26/23 10:11 Labs: Abnormal Lab Results - Last 24 Hours (Table) 10/27/23 Range/Units 07:48 RBC 3.02 L (3.80-5.40) m/uL Hgb 8.1 L (11.4-16.0) gm/dL Hct 27.2 L (34.0-46.0) % MCHC 29.7 L (31.0-37.0) g/dL Plt Count 588 H (150-450) k/uL CT scan - chest: report reviewed Assessment and Plan (1) Hemoptysis Current Visit: Yes Status: Acute Priority: High Code(s): R04.2 - HEMOPTYSIS SNOMED Code(s): 83680268 (2) Lung cancer Current Visit: Yes Status: Acute Priority: High Code(s): C34.90 - MALIGNANT NEOPLASM OF UNSP PART OF UNSP BRONCHUS OR LUNG SNOMED Code(s): 813008004 Plan: Hemoptyis Presented with complaints of hemoptysis over the last 5 days, worsening over the last 2 day. Patient is on no blood thinners. She does reporting taking 4 doses of Motrin prior to the onset of hemoptysis due to pain around previous Pleurx site. -On admission D-dimer was elevated at 3.76. CTA was obtained which was negative for acute pulmonary embolism. Viral panel negative. Coags WNL. Troponin negative. CBC showed WBC 7.5, hemoglobin 8.1, platelets 588,000. Creatinine 0.38, GFR > 90 -No hemoptysis noted today. -Pulmonology consulted. Underwent bronchoscopy today, procedure report pending Anemia: -Has been taking motrin at home for pain. Denies blood thinner use. Persisting hemoptysis. Denies any blood in stool or melena -Hgb 8.1, MCV 90.1, plts 588,000 -Anemia workup ordered -Continue to monitor CBC, transfuse for hgb < 7 Lung adenocarcinoma: -Full history in [facility] -Completed cycle 1 of tecentriq on 10/05/23, and missed cycle 2 on 10/25 due to hospitalization -Upon discharge will refer back to radiation oncology for further evaluation. If RT deemed necessary treatment would be on hold until RT completed -Clinic f/u will be scheduled upon discharge Doctor attests: I performed a history and physical examination of this patient, developed impression and plan of care. Discussed with dictator. I agree with dictators note, documented as a scribe.
[2023-10-28 03:51] LABS: % Iron Saturation 7.9 (12.00-45.00)
[2023-10-28 07:07] LABS: Glucose,Whole Blood 139 mg/dL (70-110)
--- NOTE | 2023-10-28 07:39 | XR ---
EXAMINATION TYPE: XR chest 1V portable DATE OF EXAM: 10/28/2023 COMPARISON: 09/28/2023 HISTORY: Follow-up pneumonia TECHNIQUE: Single frontal view of the chest is obtained. FINDINGS: There is increased opacification in the right lung base with obscuration of the left hemidiaphragm. F indings are consistent with a combination of right lower lobe airspace opacification secondary to pne umonia and small to moderate loculated pleural effusion. There is a right-sided chest tube. There is no pneumothorax. Left lung remains clear. IMPRESSION: Worsening right cardiopulmonary disease involving the right lower lung as described jese pruitt
[2023-10-28] MEDS: PANTOPRAZOLE 40 MG TABLET PO SCH (08:00)
[2023-10-28 08:25] VITALS: BP 117/73; TEMP 97.6
[2023-10-28] MEDS: AMOXIC-POT CLAV 875-125MG 1 EACH TAB PO SCH (08:30)
[2023-10-28 09:17] VITALS: PULSE 92
[2023-10-28 09:42] LABS: Blood Urea Nitrogen 6.8 mg/dL (9.0-27.0); Calcium 8.8 mg/dL (8.7-10.3); Carbon Dioxide 23.8 mmol/L (21.6-31.8); Chloride 105 mmol/L (96-109); Glucose 124 mg/dL (70-110); Sodium 140 mmol/L (135-145)
[2023-10-28 09:48] LABS: Basophils # (A) 0.02 X 10*3/uL (0.00-0.10); Basophils % (A) 0.2 %; Eosinophils # (A) 0.31 X 10*3/uL (0.04-0.35); Eosinophils % (A) 3.5 %; HCT 24.8 % (37.2-46.3); HGB 7.5 g/dL (12.0-15.0); Lymphocytes # (A) 1.18 X 10*3/uL (0.90-5.00); Lymphocytes % (A) 13.3 %; MCH 27.1 pg (27.0-32.0); MCHC 30.2 g/dL (32.0-37.0); MCV 89.5 FL (80.0-97.0); Mean Platelet Volume 9.4 FL (9.5-12.2); Monocytes # (A) 0.54 X 10*3/uL (0.20-1.00); Monocytes % (A) 6.1 %; NRBC Per 100 WBC 0 X 10*3/uL (0.00-0.01); Neutrophils # (A) 6.76 X 10*3/uL (1.80-7.70); Neutrophils % (A) 76.6 %; Platelet Count 589 X 10*3/uL (140-440); RBC 2.77 X 10*6/uL (4.10-5.20); RDW 14.2 % (11.5-14.5); WBC 8.84 X 10*3/uL (4.50-10.00)
--- NOTE | 2023-10-28 11:40 | P.PN ---
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 She had presented to [facility] with shortness of breath at that time and was found to have a right-sided pleural effusion and undergone thoracentesis. She was discharged after 2 days and return there again with worsening shortness of breath. She had reaccumulated the fluid in a short amount of time. From there she was transferred to [facility] where a Pleurx catheter was placed for approximately 4 weeks and it was removed about 3 weeks ago. She did follow-up with Dr. Aceves and has since received 1 round of immunotherapy in the form of Tecentriq. She was actually due for a second dose today but ended up here as she developed increasing hemoptysis over the past 24 hours. She feels it has been about 8 ounces. No fever or chills. No significant phlegm production. Mainly bright red blood. CT scan of the chest did rule out pulmonary emboli but revealed multiple right-sided lung masses suspicious for primary versus metastatic disease. There is a 1.4 cm anterior mediastinal lymph node. Consolidation or metastasis of the right lung base. She is seen today in consultation in the emergency department. She is currently sitting up in a chair. Awake and alert in no acute distress. Maintaining good O2 saturations in the upper 90s on room air. Denies any shortness of breath at rest. Some dyspnea on exertion at times. She is afebrile. Hemodynamically stable. White count 8.8. Hemoglobin 8.7. Platelets 641. D-dimer 3.76. Sodium 137. Potassium 4.1. Bicarb 21. BUN 8. Creatinine 0.38. Viral screen is negative. The patient is seen today October 27, 2023 in follow-up in the emergency department. She is sitting up in the stretcher. Awake and alert in no acute distress. She denies any worsening shortness of breath, cough or congestion. Her hemoptysis has slowed down. Just some dark blood noted. She did undergo bronchoscopy with BAL today. No active bleeding was noted. No purulent drainage noted. Her bronchial airways were lavaged and again no active bleeding was noted just old blood removed. Cultures and cytology pending. Her hemoglobin is 8.1. White count 7.5. Platelets 588. Legionella screen negative. Continued on DuoNeb inhalations, Symbicort, antibiotics in the form of Zosyn and azithromycin. Her procalcitonin however is negative. NicoDerm patch in place. The patient is seen today October 28, 2023 in follow-up on the regular medical floor. She is currently up ambulating in her room. Awake and alert in no acute distress. She states she is just had a trace amount of hemoptysis in the past 24 hours. She did not undergo bronchoscopy with BAL yesterday and there was no active bleeding noted. She is maintaining O2 saturations in the 90s on room air. She has been afebrile. Hemodynamically stable. White count 8.8. Hemoglobin 7.5. Platelets 589. Sodium 140. Potassium 4.0. Bicarb 24. BUN 7. Creatinine 0.5. Glucose 124. DuoNeb and elations, Symbicort. NicoDerm patch in place. She remains on antibiotics in the form of Zosyn. Objective - Vital Signs Vital signs: Vital Signs Temp 97.6 F 10/28/23 07:05 Pulse 92 10/28/23 09:13 Resp 16 10/28/23 07:05 BP 117/73 10/28/23 07:05 Pulse Ox 93 L 10/28/23 07:05 FiO2 Intake & Output 10/27/23 10/28/23 10/28/23 18:59 06:59 18:59 Intake Total 1280 Balance 1280 Weight 63.049 kg Intake: IV 200 Oral 1080 Other: # Voids 2 3 - Exam GENERAL EXAM: Alert, pleasant 58-year-old female, ambulating in her room, on room air, in no apparent distress. HEAD: Normocephalic. EYES: Normal reaction of pupils, equal size. NOSE: Clear with pink turbinates. THROAT: No erythema or exudates. NECK: No masses, no JVD. CHEST: No chest wall deformity. LUNGS: Equal air entry scattered rhonchi over the right lung, dullness in the bases. CVS: S1 and S2 normal with no audible murmur, regular rhythm. ABDOMEN: No hepatosplenomegaly, normal bowel sounds, no guarding or rigidity. SPINE: No scoliosis or deformity SKIN: No rashes CENTRAL NERVOUS SYSTEM: No focal deficits, tone is normal in all 4 extremities. EXTREMITIES: There is no peripheral edema. No clubbing, no cyanosis. Peripheral pulses are intact. - Labs CBC & Chem 7: 10/28/23 04:11 10/28/23 04:11 Labs: Abnormal Lab Results - Last 24 Hours (Table) 10/27/23 10/27/23 10/27/23 Range/Units 16:37 17:15 20:13 RBC (4.10-5.20) X 10*6/uL Hgb (12.0-15.0) g/dL Hct (37.2-46.3) % MCHC (32.0-37.0) g/dL Plt Count (140-440) X 10*3/uL MPV (9.5-12.2) FL BUN (9.0-27.0) mg/dL Creatinine (0.6-1.5) mg/dL Glucose (70-110) mg/dL POC Glucose (mg/dL) 192 H 142 H (70-110) mg/dL Hemoglobin A1c (<=6.0) % Iron 23 L (50-170) UG/DL % Saturation 7.90 L (12.00-45.00) Ferritin 365.0 H (10.0-291.0) ng/mL 10/28/23 10/28/23 10/28/23 Range/Units 04:11 04:11 04:11 RBC 2.77 L (4.10-5.20) X 10*6/uL Hgb 7.5 L (12.0-15.0) g/dL Hct 24.8 L (37.2-46.3) % MCHC 30.2 L (32.0-37.0) g/dL Plt Count 589 H (140-440) X 10*3/uL MPV 9.4 L (9.5-12.2) FL BUN 6.8 L (9.0-27.0) mg/dL Creatinine 0.5 L (0.6-1.5) mg/dL Glucose 124 H (70-110) mg/dL POC Glucose (mg/dL) (70-110) mg/dL Hemoglobin A1c 6.5 H (<=6.0) % Iron (50-170) UG/DL % Saturation (12.00-45.00) Ferritin (10.0-291.0) ng/mL 10/28/23 Range/Units 07:07 RBC (4.10-5.20) X 10*6/uL Hgb (12.0-15.0) g/dL Hct (37.2-46.3) % MCHC (32.0-37.0) g/dL Plt Count (140-440) X 10*3/uL MPV (9.5-12.2) FL BUN (9.0-27.0) mg/dL Creatinine (0.6-1.5) mg/dL Glucose (70-110) mg/dL POC Glucose (mg/dL) 139 H (70-110) mg/dL Hemoglobin A1c (<=6.0) % Iron (50-170) UG/DL % Saturation (12.00-45.00) Ferritin (10.0-291.0) ng/mL Microbiology - Last 24 Hours (Table) 10/26/23 14:21 Gram Stain - Preliminary Sputum 10/27/23 14:25 Gram Stain - Preliminary Bronchial Washings - Right 10/26/23 14:46 Blood Culture - Preliminary Blood 10/26/23 14:15 Blood Culture - Preliminary Blood Assessment and Plan Assessment: Hemoptysis in a patient with a known history of metastatic adenocarcinoma lung cancer diagnosed in July 2023 at [facility]. Received 1 round of immunotherapy in the form of Tecentriq. Was due for her second round 10/26/23. She did undergo bronchoscopy with BAL today October 27, 2023. Bronchial airways were lavaged, observed over several minutes and no active bleeding noted. Cultures and cytology pending. Pleural effusion, right-sided, secondary to above, recurrent Anemia suspect secondary to above in combination with treatment Dyspnea on exertion secondary to multiple right-sided lung masses. Consolidation or metastasis in the right lung base. There is a 1.4 cm anterior mediastinal lymph node. Procalcitonin 0.06 Chronic and ongoing tobacco dependence Chronic obstructive pulmonary disease Diabetes mellitus Hypertension Hyperlipidemia Plan: The patient was seen and evaluated Chest x-ray, labs and medications reviewed Stable and on room air Continue to monitor hemoglobin Bronchoscopy performed yesterday with no active bleeding noted If recurrent hemoptysis recommend bronchial artery embolization at a tertiary care center Cleared for discharge from the pulmonary standpoint Discontinue Zosyn continue Augmentin x 5 more days Continue her home pulmonary medications Follow-up with medical oncology Follow-up in our office in 1 week Will repeat a chest x-ray then I have personally seen and examined the patient, performed the documentation and the assessment and plan as written. Number of minutes spent on the visit: 10.
[2023-10-28 11:51] LABS: Glucose,Whole Blood 122 mg/dL (70-110)
--- NOTE | 2023-10-28 20:41 | DS ---
DISCHARGE SUMMARY FINAL DIAGNOSES: 1. Acute hemoptysis with mild acute blood loss anemia, status post bronchoscopy without any active lesions. 2. Right lung cancer, on chemotherapy. 3. Possible right-sided postobstructive pneumonia. 4. Hemoptysis. 5. Diabetes mellitus, type 2. 6. Hypertension. 7. Nicotine dependence. DISCHARGE DISPOSITION: The patient will be discharged in stable condition with guarded prognosis. HISTORY OF PRESENT ILLNESS: A 58-year-old woman with a past medical history of multiple medical problems, admitted with hemoptysis. The patient was stabilized. Bronchoscopy did not show any acute abnormality. Dr. Hadley recommended the patient to be discharged. PHYSICAL EXAMINATION: VITAL SIGNS: Stable. CARDIOVASCULAR: S1, S2. ABDOMEN: Soft. RESPIRATIONS: A few scattered rhonchi. The patient will be discharged in a stable condition and guarded prognosis. Avoid antiplatelet agents, anticoagulants, and Motrin. Otherwise, follow up with Dr. Hadley and Oncology as recommended. Follow up with Dr. Kevin Scales and course of Augmentin and Zithromax. Smoking cessation. Please refer to the medication reconciliation sheet for list of medications. MMODL / IJN: [id number] /
[2023-10-31 03:22] LABS: Methylmalonic Acid 0.53 umol/L (<0.40)
== END 2023-10-28 13:30 | disposition home or self-care (01) | DRG 811 ==
LOC: EC 09:37 → 5NMEDONC 13:12
PROVIDERS: ADMIT Internal Medicine; ATTEND Internal Medicine
PROC: 0B9F8ZX Drainage of Right Lower Lung Lobe, Via Natural or Artificial Opening Endoscopic, Diagnostic (ICD-10-PCS; principal; 2023-10-28)
DX: D62 Acute posthemorrhagic anemia (principal); J18.9 Pneumonia, unspecified organism; C34.91 Malignant neoplasm of unspecified part of right bronchus or lung; J90 Pleural effusion, not elsewhere classified; E78.5 Hyperlipidemia, unspecified; F17.200 Nicotine dependence, unspecified, uncomplicated; E11.9 Type 2 diabetes mellitus without complications; I10 Essential (primary) hypertension; Z79.84 Long term (current) use of oral hypoglycemic drugs; Z79.899 Other long term (current) drug therapy; Z85.118 Personal history of other malignant neoplasm of bronchus and lung; Z11.52 Encounter for screening for COVID-19
CPT/HCPCS: 31624; 36415; 71045; 71275; 80048; 80053; 82607; 82728; 82747; 83036; 83540; 83550; 83605; 83735; 83921; 84145; 84484; 85025; 85027; 85379; 85610; 85730; 87040; 87070; 87102; 87116; 87205; 87206; 87449; 87636; 93005; 94640; 96365; 96366; 96367; 99285